=== PATIENT | male | born 1950 | race Caucasian/White ===

== ENCOUNTER 2020-01-15 18:59 | Emergency (ER) | payer MEDICARE, OTHER ==
[~2020-01-15] VITALS: Ht 177.8 cm; Wt 108.9 kg
[2020-01-15 19:23] VITALS: BP 132/75
[2020-01-15 19:54] LABS: INFLUENZA A ANTIGEN Negative (Negative); INFLUENZA B ANTIGEN Negative (Negative)
== END 2020-01-15 20:35 | disposition home or self-care (01) ==
LOC: M.ERS 18:59
PROVIDERS: Physician Assistant
DX: R05 Cough (principal); Z20.828 Contact with and (suspected) exposure to other viral communicable diseases; Z85.46 Personal history of malignant neoplasm of prostate

== ENCOUNTER 2020-01-22 16:51 | Emergency (ER) | payer MEDICARE, OTHER ==
[~2020-01-22] VITALS: Ht 177.8 cm; Wt 108.9 kg
[2020-01-22 18:14] VITALS: BP 147/73
== END 2020-01-22 18:15 | disposition home or self-care (01) ==
LOC: M.ERS 16:51
DX: U07.1 COVID-19 (principal); R51.9 Headache, unspecified; Z87.891 Personal history of nicotine dependence; Z85.46 Personal history of malignant neoplasm of prostate